=== PATIENT | male | born 1940 | race Caucasian/White ===

== ENCOUNTER 2017-04-27 10:42 | Emergency (ER) | payer MEDICAID, OTHER ==
[~2017-04-27] VITALS: Ht 157.5 cm; Wt 70.0 kg
[2017-04-27 10:56] VITALS: BP 107/71; PULSE 69; RESP 18; TEMP 97.6; O2SAT 95
[2017-04-27] MEDS ORDERED: SODIUM CHLOR 0.9% 1000 ML INJ 1,000 ML IV SCH ×2 (11:05→11:09)
[2017-04-27 11:09] VITALS: O2SAT 95
--- NOTE | 2017-04-27 11:11 | PD ---
HPI Chief Complaint: GI Complaint Time Seen by Provider: 10:58 Travel History International Travel<30 days: No Contact w/Intl Traveler<30days: No Traveled to known affect area: No History of Present Illness HPI 77-year-old male Japanese-speaking only, so [employer] validation architect was used for history and physical exam. The patient is here by ambulance for evaluation of generalized weakness, nausea, and one episode of vomiting that occurred this morning. He was provided Zofran by EMS, and upon arrival he feels better. He denies abdominal pain. No chest pain or dyspnea. No fevers or cough. PFSH Social History Tobacco Use: No (Unknown) Allergies-Medications (Allergen,Severity, Reaction): Coded Allergies: aspirin (Verified Allergy, Intermediate, TACHYCARDIA, 04/27/17) Reported Meds & Prescriptions Reported Meds & Active Scripts Active Reported Labetalol (Labetalol HCl) 100 Mg Tab 100 Mg PO BID Allopurinol 100 Mg Tab 100 Mg PO DAILY Review of Systems Except as stated in HPI: all other systems reviewed are Neg Physical Exam Narrative GENERAL: Well-developed, well-nourished, comfortable, no apparent distress. SKIN: Focused skin assessment warm/dry. HEAD: Atraumatic. Normocephalic. EYES: Pupils equal and round. No scleral icterus. No injection or drainage. ENT: Mucous membranes pink and moist. NECK: Trachea midline. No JVD. CARDIOVASCULAR: Regular rate and rhythm. No murmur appreciated. RESPIRATORY: No accessory muscle use. Clear to auscultation. Breath sounds equal bilaterally. GASTROINTESTINAL: Abdomen soft, non-tender, nondistended. MUSCULOSKELETAL: No obvious deformities. No clubbing. No cyanosis. No edema. NEUROLOGICAL: Awake and alert. No obvious cranial nerve deficits. Motor grossly within normal limits. Normal speech. PSYCHIATRIC: Appropriate mood and affect; insight and judgment normal. Data Data Last Documented VS Vital Signs Date Time Temp Pulse Resp B/P (MAP) Pulse Ox O2 Delivery O2 Flow Rate FiO2 04/27/17 14:32 72 18 120/75 (90) 98 04/27/17 11:09 Room Air 04/27/17 10:56 97.6 Orders Orders Complete Blood Count With Diff (04/27/17 11:05) Comprehensive Metabolic Panel (04/27/17 11:05) Lipase (04/27/17 11:05) Iv Access Insert/Monitor (04/27/17 11:05) Ecg Monitoring (04/27/17 11:05) Oximetry (04/27/17 11:05) Sodium Chlor 0.9% 1000 Ml Inj (Ns 1000 M (04/27/17 11:05) Sodium Chloride 0.9% Flush (Ns Flush) (04/27/17 11:15) Electrocardiogram (04/27/17 11:05) Influenzae A/B Antigen (04/27/17 11:05) Chest, Single Ap (04/27/17 ) Ckmb (Isoenzyme) Profile (04/27/17 11:05) Troponin I (04/27/17 11:05) Sodium Chlor 0.9% 1000 Ml Inj (Ns 1000 M (04/27/17 11:09) Electrocardiogram (04/27/17 ) CKMB (04/27/17 12:39) CKMB% (04/27/17 12:39) Ed Discharge Order (04/27/17 13:46) Labs Laboratory Tests Test 04/27/17 11:25 04/27/17 12:39 White Blood Count 7.8 TH/MM3 Red Blood Count 5.31 MIL/MM3 Hemoglobin 15.5 GM/DL Hematocrit 46.7 % Mean Corpuscular Volume 87.9 FL Mean Corpuscular Hemoglobin 29.2 PG Mean Corpuscular Hemoglobin Concent 33.3 % Red Cell Distribution Width 13.5 % Platelet Count 275 TH/MM3 Mean Platelet Volume 7.9 FL Neutrophils (%) (Auto) 61.8 % Lymphocytes (%) (Auto) 21.4 % Monocytes (%) (Auto) 7.9 % Eosinophils (%) (Auto) 7.6 % Basophils (%) (Auto) 1.3 % Neutrophils # (Auto) 4.8 TH/MM3 Lymphocytes # (Auto) 1.7 TH/MM3 Monocytes # (Auto) 0.6 TH/MM3 Eosinophils # (Auto) 0.6 TH/MM3 Basophils # (Auto) 0.1 TH/MM3 CBC Comment AUTO DIFF Differential Comment AUTO DIFF CONFIRMED Platelet Estimate NORMAL Platelet Morphology Comment NORMAL Blood Urea Nitrogen 19 MG/DL Creatinine 1.70 MG/DL Random Glucose 105 MG/DL Total Protein 7.0 GM/DL Albumin 3.2 GM/DL Calcium Level 8.4 MG/DL Alkaline Phosphatase 87 U/L Aspartate Amino Transf (AST/SGOT) 25 U/L Alanine Aminotransferase (ALT/SGPT) 40 U/L Total Bilirubin 0.3 MG/DL Sodium Level 139 MEQ/L Potassium Level 4.2 MEQ/L Chloride Level 109 MEQ/L Carbon Dioxide Level 23.2 MEQ/L Anion Gap 7 MEQ/L Estimat Glomerular Filtration Rate 39 ML/MIN Total Creatine Kinase 236 U/L Creatine Kinase MB 1.1 NG/ML Troponin I LESS THAN 0.02 NG/ML Lipase 296 U/L [facility] Medical Decision Making Medical Screen Exam Complete: Yes Emergency Medical Condition: Yes Medical Record Reviewed: Yes Interpretation(s) EKG: Sinus, rate 70, normal axis, first-degree AV block, slight ST elevations diffusely consistent with J-point elevation/early repolarization, no reciprocal changes Differential Diagnosis Nausea and vomiting, dehydration, gastroenteritis, viral illness, influenza Narrative Course EKG findings discussed with on-call secondary school teacher Dr. Qiu who reviewed the EKG. This EKG does not appear to be ischemic. The patient also is not complaining of any chest pain. Recommendation is for 2 sets of troponins 2 hours apart as well as 2 EKGs 2 hours apart. Unfortunately the patient's chemistry had to be redrawn because of hemolysis, and the first set of cardiac enzymes were drawn 2 hours after the patient's arrival. Repeat EKG 2 hours after the first is unchanged. Vital signs show heart rate 69, blood pressure 107/71, pulse ox 95% on room air , oral temperature 97.6F. CBC is unremarkable. CMP is remarkable for BUN 19, creatinine 1.7, GFR 39, otherwise essentially unremarkable. Lipase is 296. Cardiac enzymes are negative. Chest x-ray: Cardiomegaly without evidence of acute cardiopulmonary process. Basilar hypoaeration. No consolidation. [employer] validation architect was used to explain all results to the patient and the patient's . The patient has felt well the entire time in the emergency department and has not had any chest pain or abdominal pain. He is tolerating clear liquids in the emergency department. He has an appointment with his primary care physician on 05/06/17. He is stable for discharge home with outpatient follow-up. He was advised on when to return to the emergency department. He verbalizes understanding and agreement with plan. Diagnosis Primary Impression: Nausea and vomiting Qualified Codes: R11.2 - Nausea with vomiting, unspecified Referrals: Primary Care Physician 1 week Additional Instructions: 05/06/17 as scheduled. Return to the emergency department for worsening symptoms or any other concerns. Disposition: 01 DISCHARGE HOME Condition: Konrad Ryan MD Apr 27, 2017 11:11
[2017-04-27] MEDS ORDERED: LABE100T2 PO (11:14)
[2017-04-27] MEDS ORDERED: ALLO100T PO (11:14)
[2017-04-27] MEDS ORDERED: SODIUM CHLORIDE 0.9% FLUSH 10 ML FLUSH IV FLUSH PRN (11:15)
[2017-04-27 11:40] LABS: AUTOMATED NEUTROPHIL # 4.8 TH/MM3 (1.8-7.7); BASOPHIL # 0.1 TH/MM3 (0-0.2); BASOPHIL % 1.3 % (0.0-2.0); EOSINOPHIL # 0.6 TH/MM3 (0-0.4); EOSINOPHIL % 7.6 % (0.0-4.0); HEMATOCRIT 46.7 % (39.0-51.0); HEMOGLOBIN 15.5 GM/DL (13.0-17.0); LYMPH % 21.4 % (9.0-44.0); LYMPHOCYTE # 1.7 TH/MM3 (1.0-4.8); MEAN CELL VOLUME 87.9 FL (80.0-100.0); MEAN CORPUSCULAR HEMOGLOBIN 29.2 PG (27.0-34.0); MEAN CORPUSCULAR HGB CONC 33.3 % (32.0-36.0); MEAN PLATELET VOLUME 7.9 FL (7.0-11.0); MONO % 7.9 % (0.0-8.0); MONOCYTE # 0.6 TH/MM3 (0-0.9); NEUT % 61.8 % (16.0-70.0); PLATELET COUNT 275 TH/MM3 (150-450); RED BLOOD COUNT 5.31 MIL/MM3 (4.50-5.90); RED CELL DISTRIBUTION WIDTH 13.5 % (11.6-17.2); WHITE BLOOD COUNT 7.8 TH/MM3 (4.0-11.0)
--- NOTE | 2017-04-27 11:55 | RADRPT ---
EXAM DATE/TIME: 04/27/2017 11:19 [facility] COMPARISON: No previous studies available for comparison. INDICATIONS : Short of breath MEDICAL HISTORY : none given SURGICAL HISTORY : none given ENCOUNTER: Initial ACUITY: 1 day PAIN SCORE: Non-responsive. LOCATION: Bilateral chest FINDINGS: The heart is moderately enlarged. Lungs are hypoaerated with mild interstitial vascular prominence. T here is no evidence of acute airspace disease. There is no significant congestion. CONCLUSION: Cardiomegaly without evidence of acute cardiopulmonary process. Basilar hypoaeration Cal Gould MD on April 27, 2017 at 11:53 Board Certified Radiologist. This report was verified electronically.
[2017-04-27 12:59] LABS: CHLORIDE 109 MEQ/L (98-107); SODIUM (NA) 139 MEQ/L (136-145)
[2017-04-27 13:02] LABS: CALCIUM 8.4 MG/DL (8.5-10.1)
[2017-04-27 13:03] LABS: ALBUMIN 3.2 GM/DL (3.4-5.0); BICARBONATE 23.2 MEQ/L (21.0-32.0); BLOOD UREA NITROGEN 19 MG/DL (7-18); GLUCOSE,RANDOM 105 MG/DL (74-106)
[2017-04-27 13:06] LABS: ALT (GPT) 40 U/L (12-78); AST (GOT) 25 U/L (15-37); GLOMERULAR FILTRATION RATE 39 ML/MIN (>89)
[2017-04-27 13:07] LABS: TOTAL BILIRUBIN ADULT 0.3 MG/DL (0.2-1.0)
[2017-04-27 13:09] LABS: ALKALINE PHOSPHATASE 87 U/L (45-117)
[2017-04-27 13:10] VITALS: BP 112/76; PULSE 80; RESP 18; O2SAT 95
[2017-04-27 13:32] LABS: TROPONIN I LESS THAN 0.02 NG/ML (0.02-0.05)
[2017-04-27 14:32] VITALS: BP 120/75
--- NOTE | 2017-04-27 14:47 | EKG ---
Date Performed: 04/27/2017 Time Performed: 13:11:33 PTAGE: 77 years EKG: Sinus rhythm WITH SINUS ARRHYTHMIA NONSPECIFIC T-WAVE ABNORMALITY BORDERLINE ECG No significant change from prior electrocardiogram. PREVIOUS TRACING : 04/27/2017 11.13 DOCTOR: Kevin Leyva Interpretating Date/Time 04/27/2017 14:46:40
--- NOTE | 2017-04-27 14:52 | EKG ---
Date Performed: 04/27/2017 Time Performed: 11:13:07 PTAGE: 77 years EKG: Sinus rhythm WITH SINUS ARRHYTHMIA WITH FIRST DEGREE AV BLOCK NONSPECIFIC ST & T-WAVE ABNORMALITY ABNORMAL ECG NO PREVIOUS TRACING DOCTOR: Kevin Leyva Interpretating Date/Time 04/27/2017 14:50:46
== END 2017-04-27 14:37 | disposition home or self-care (01) ==
LOC: PHED 10:42
DX: R11.2 Nausea with vomiting, unspecified (principal); R53.1 Weakness; R94.31 Abnormal electrocardiogram [ECG] [EKG]
CPT/HCPCS: 71045; 80053; 82550; 82552; 83690; 84484; 85025; 87804; 93005; 96360; 96361; 99285; J7030